=== PATIENT | female | born 1960 | race Caucasian/White ===

== ENCOUNTER 2018-02-19 12:12 | Day surgery (SDC) | payer BC ==
[2018-02-15 15:11] VITALS: BMI 27.4
[2018-02-19] MEDS ORDERED: PROPOFOL 20 ML ONE (12:41)
[2018-02-19] MEDS ORDERED: LIDOCAINE HCL/PF 2% SDV 5ML VIAL ONE (12:42)
[2018-02-19 13:47] VITALS: BP 126/78; PULSE 76; TEMP 97.6
== END 2018-02-19 13:47 | disposition home or self-care (01) ==
LOC: FASU-ENDO 12:12
PROVIDERS: ATTEND Internal Medicine Gastroenterology
PROC: 0DJD8ZZ Inspection of Lower Intestinal Tract, Via Natural or Artificial Opening Endoscopic (ICD-10-PCS; principal; 2018-02-19 12:54)
DX: Z12.11 Encounter for screening for malignant neoplasm of colon (principal)
CPT/HCPCS: 84703